=== PATIENT | male | born 1945 | race Caucasian/White ===

== ENCOUNTER 2017-06-15 08:16 | Outpatient (CLI) | payer MEDICARE ==
--- NOTE | 2017-06-15 10:34 | CT ---
EXAM: Low-dose lung screening CT. HISTORY: A 72-year-old male. History of smoking. COMPARISON: 06/05/16. TECHNIQUE: A noncontrast low-dose screening CT is performed in the axial plane following institution protocol. FINDINGS: Lung screening specific (lung RADS): Negative. Minor findings not suspicious for primary lung cancer. Potential significant incidentals (lung RADS category S): None. Pulmonary incidentals: There is a 4 mm nodule in the right upper lobe, unchanged. Other incidentals: Coronary calcification as well as atherosclerosis of the aorta is identified. IMPRESSION: 1. Lung RADS category I, negative. No evidence of primary lung cancer. 2. Lung RADS category S: negative. No new or unknown potential significant incidental findings req uiring urgent additional evaluation. 3. Other incidentals as above. RECOMMENDATION: Annual low-dose screening CT in 1 year. POS: [facility]
== END 2017-06-15 08:17 | disposition home or self-care (01) ==
LOC: CT 08:16
PROVIDERS: ATTEND Family Medicine
DX: Z87.891 Personal history of nicotine dependence (principal); R91.8 Other nonspecific abnormal finding of lung field
CPT/HCPCS: G0297

== ENCOUNTER 2018-08-30 09:46 | Outpatient (CLI) | payer MEDICARE ==
--- NOTE | 2018-08-30 11:08 | CT ---
CT pulmonary lung scan without IV contrast INDICATION: Lung cancer screening protocol; personal history of smoking for 45 years; quit in 2006 COMPARISON: Prior lung cancer screening CT evaluations dated 06/15/2017 at 06/05/2016 FINDINGS: LUNGS: Nodules\mass: No suspicious pulmonary nodules are present. The 4 mm pulmonary nodule within the right upper lobe has been stable since 2017. Small groundglass nodular opacity on image 111 of series 2 has been stable since 2017. Emphysema: Mild Additional findings: There are scattered coronary artery and thoracic aortic calcifications. Mediastinum: No lymphadenopathy. Upper abdomen: No abnormality. Osseous structures: No acute abnormality.. IMPRESSION: Lung-RADS Category 2: Benign- Continue annual screening with LDCT in 12 months Category S: Coronary artery and thoracic aortic calcifications, mild emphysema Category C: Not applicable.
== END 2018-08-30 09:47 | disposition home or self-care (01) ==
LOC: CT 09:46
PROVIDERS: ATTEND Family Medicine
DX: Z12.2 Encounter for screening for malignant neoplasm of respiratory organs (principal); Z87.891 Personal history of nicotine dependence; J43.9 Emphysema, unspecified; I70.0 Atherosclerosis of aorta
CPT/HCPCS: G0297

== ENCOUNTER 2020-01-25 10:43 | Outpatient (CLI) | payer MEDICARE ==
--- NOTE | 2020-01-25 12:26 | CT ---
EXAM: CT chest without contrast per low-dose cancer screening protocol HISTORY: History of smoking and nicotine dependence COMPARISON: 08/30/2018, 06/05/2016 TECHNIQUE: Multiple contiguous axial images were obtained in a CT of the chest without contrast per l ow-dose cancer screening protocol. Sagittal and coronal reformats were performed. FINDINGS: Pulmonary nodules: There is a stable 3 to 4 mm nodule on image 98 at 253 in the right upper lobe. The previously seen nonmasslike area of groundglass attenuation in the superior aspect of the right lower lobe on image 111 of 253 is again stable. No focal infiltrates are seen. Pleural space: No pneumothorax or pleural effusion are seen. Heart: The heart is normal in size. Calcifications are seen in the coronary arteries and aorta. Mediastinum: No hilar or mediastinal lymphadenopathy appreciated on this limited noncontrast examinat ion. Bones: Degenerative changes in the spine. Visualized subdiaphragmatic structures: Unremarkable. IMPRESSION: Lung RADS category 2-benign.
== END 2020-01-25 10:44 | disposition home or self-care (01) ==
LOC: BICCT 10:43
PROVIDERS: ATTEND Family Medicine
DX: Z12.2 Encounter for screening for malignant neoplasm of respiratory organs (principal); Z91.89 Other specified personal risk factors, not elsewhere classified; Z87.891 Personal history of nicotine dependence
CPT/HCPCS: G0297